=== PATIENT | male | born 1940 | race Two or more races ===

== ENCOUNTER 2018-01-23 12:24 | Inpatient (IN) | payer OTHER ==
[~2018-01-23] VITALS: Ht 172.7 cm; Wt 64.0 kg
[~2018-01-23 12:24] MED LIST: AVAPRO300 MG PO; NORVASC10 MG PO; ULTRACET PO; ZANTAC150 M3 PO
[2018-01-23] MEDS ORDERED: ARICEPT10 MG (13:14)
[2018-01-23] MEDS ORDERED: ZOLOFT50 MG (13:14)
[2018-01-23] MEDS ORDERED: AVAPRO300 MG (13:15)
[2018-01-23] MEDS ORDERED: GABAPENTIN250 MG/5 M (13:15)
[2018-01-26] MEDS ORDERED: RISPERDAL0.5 MG PO (09:57)
== END 2018-01-26 10:37 | disposition home or self-care (01) | DRG 812 ==
LOC: ER 12:24 → SEC-K 19:56 → MEDJ 19:56 → MEDI 23:48 → MEDJ 23:52 → SEC-K 01-24 01:53 → MEDJ 01-24 03:04
PROC: 30233N1 Transfusion of Nonautologous Red Blood Cells into Peripheral Vein, Percutaneous Approach (ICD-10-PCS; principal; 2018-01-23)
PROC: 8E0ZXY6 Isolation (ICD-10-PCS; 2018-01-23)
DX: D46.Z Other myelodysplastic syndromes (principal); D63.8 Anemia in other chronic diseases classified elsewhere; G30.8 Other Alzheimer's disease; F02.80 Dementia in other diseases classified elsewhere, unspecified severity, without behavioral disturbance, psychotic disturbance, mood disturbance, and anxiety; I25.10 Atherosclerotic heart disease of native coronary artery without angina pectoris; I11.9 Hypertensive heart disease without heart failure; F32.89 Other specified depressive episodes; D50.8 Other iron deficiency anemias